=== PATIENT | female | born 1945 | race Caucasian/White ===

== ENCOUNTER 2016-09-24 17:48 | Emergency (ER) | payer MEDICARE, OTHER ==
[2016-09-24] MEDS ORDERED: KETOROLAC 0.45% OPHTH 1 DROP/EACH DROPERETTE ONE (18:51)
[2016-09-24] MEDS ORDERED: TOBRAMYCIN 0.3% OPHTH 25 DROP/5 ML BTL ONE (18:51)
--- NOTE | 2016-09-24 18:56 | ER NURSING DOCUMENTATION ---
Nurse's Notes [facility] Name:Teresita Bolden Age:70 yrs Sex:Female :1945 Arrival Date:09/24/2016 Time:17:48 Bed1 Private MD: Diagnosis:Stye Presentation: 09/24 17:53 Presenting complaint: Patient states: has been having redness and swelling of her right sc1 eye. Saw Dr. Galloway yesterday and put on antibiotics yesterday. She thinks it's worse today. Transition of care: Home. 17:53 Acuity: MAMIE 4 co1 17:53 Method Of Arrival: Private Vehicle co1 18:04 Notified ED Physician of Dr. Jc notified. co1 Triage Assessment: 18:11 General: Appears in no apparent distress, well developed, well nourished, well groomed, co1 Behavior is cooperative, pleasant. Pain: Complains of pain in right eye. Historical: - Allergies: Clindamycin; - Home Meds: 1. chlorzoxazone oral 2. Ibuprofen Oral - PMHx: Acute Low Back Pain (March 15, 2014); - Tetanus: < 10 years. - Ebola Screening: : Patient negative for fever greater than or equal to 101.5 degrees Fahrenheit, and additional compatible Ebola Virus Disease symptoms. Patient denies exposure to infectious person. Patient denies travel to an Ebola-affected area in the 21 days before illness onset. No symptoms or risks identified at this time. . - Immunization history: Flu Vaccine < 1 year. - Social history: Smoking status: Patient states was never smoker of tobacco. Patient/guardian denies using alcohol, street drugs, IV drugs, marijuana. Vital Signs: 18:11 BP 152 / 73; Pulse 74; Resp 18; Temp 98.3; Pulse Ox 90% on R/A; co1 ED Course: 17:51 Patient arrived in ED. 17:53 Ankita Grullon, RN is Primary Nurse. [facility] [place]:04 Triage completed. co1 18:13 Notified ED Physician of patient's arrival and chief complaint. Dr. Jc notified. Arm sc1 band placed on Bed in low position Call Light in Reach HOB Elevated. 18:19 Vasquez Jc MD is Attending Physician. co 18:38 Danny Galloway MD is Referral Physician. sc Administered Medications: 18:55 Drug: ketorolac (PF) Dropperette 0.45 % 1 drops; Route: Ophthalmic; Site: right eye; [facility] [place] Drug: Tobramycin Drops (0.3 %) 1 drops; Route: Ophthalmic; Site: right [place]; [facility] [place] Outcome: 18:39 Discharge ordered by . co 18:56 Patient left the ED. [facility] [place]/25 09:22 Discharge F/U Call: Spoke with: patient. Are you having any pain? no. Have you filled lp your prescriptions? yes. Signatures: Ankita Grullon RN RN [facility] [place] Rosalia Mtz RN RN Vasquez Jc MD MD co Juanis Ramírez
--- NOTE | 2016-09-24 18:56 | ER PHYSICIAN DOCUMENTATION ---
Physician Documentation [facility] Name:Teresita Bolden Age:70 yrs Sex:Female :1945 Arrival Date:09/24/2016 Time:17:48 Bed1 Private MD: Vasquez Gannon Disposition: 09/24/16 18:39 Discharged to Home/Self Care. Impression: Stye. - Condition is Good. - Discharge Instructions: STY. - Medical Reconciliation form form. - Follow up: Danny Galloway MD; When: As needed; Reason: Worsening of condition. - Problem is new. - Symptoms are unchanged. HPI: 09/24 18:36 This 70 yrs old Female presents to ER via Private Vehicle with complaints of sc Eye Problem. 18:36 The patient is experiencing redness, to the right eye. Onset: The symptom(s)/episode sc began/occurred yesterday. Duration: the symptoms are continuous. Associated signs and symptoms: Pertinent negatives: dizziness, fever, headache. Patient wears glasses. Severity of symptoms: At their worst the symptoms were mild. Historical: - Allergies: Clindamycin; - Home Meds: 1. chlorzoxazone oral 2. Ibuprofen Oral - PMHx: Acute Low Back Pain (March 15, 2014); - Tetanus: < 10 years. - Ebola Screening: : Patient negative for fever greater than or equal to 101.5 degrees Fahrenheit, and additional compatible Ebola Virus Disease symptoms. Patient denies exposure to infectious person. Patient denies travel to an Ebola-affected area in the 21 days before illness onset. No symptoms or risks identified at this time. . - Immunization history: Flu Vaccine < 1 year. - Social history: Smoking status: Patient states was never smoker of tobacco. Patient/guardian denies using alcohol, street drugs, IV drugs, marijuana. ROS: 18:37 Constitutional: Negative for fever, chills, and weight loss. sc Neck: Negative for injury, pain, and swelling. Cardiovascular: Negative for chest pain, palpitations, and edema. Skin: Negative for injury, rash, and discoloration. 18:37 Neuro: Negative for headache, weakness, numbness, tingling, and seizure. sc 18:37 Eyes: Positive for redness, swelling. Exam: 18:37 Visual Acuity: I have reviewed the nursing documentation. Visual acuity is within co normal limits. Constitutional: This is a well developed, well nourished patient who is awake, alert, and in no acute distress. 18:37 Head/Face: Normocephalic, atraumatic. 18:37 Eyes: Periorbital structures: erythema, Pupils: equal, round, and reactive to light and accomodation, Extraocular movements: intact throughout, Conjunctiva: no acute changes, Corneas: no acute changes, Sclera: no acute changes, Lids and lashes: stye, seen on the right lid. Vital Signs: 18:11 BP 152 / 73; Pulse 74; Resp 18; Temp 98.3; Pulse Ox 90% on R/A; co1 MDM: 18:19 Patient medically screened. co 18:38 Differential diagnosis: stye, no periorbital cellulitis. Data reviewed: vital signs, co nurses notes, old medical records, and as a result, I will discharge patient, administer antibiotics. Counseling: I had a detailed discussion with the patient and/or guardian regarding: the historical points, exam findings, and any diagnostic results supporting the discharge/admit diagnosis, the need for outpatient follow up, to return to the emergency department if symptoms worsen or persist or if there are any questions or concerns that arise at home. Dispensed Medications: 18:55 Drug: ketorolac (PF) Dropperette 0.45 % 1 drops; Route: Ophthalmic; Site: right eye; [facility] [place] 18:56 Drug: Tobramycin Drops (0.3 %) 1 drops; Route: Ophthalmic; Site: right eye; co1 Signatures: Ankita Grullon RN RN [facility] [place] Vasquez Jc MD MD co
== END 2016-09-24 18:56 | disposition home or self-care (01) ==
LOC: ER 17:48
DX: H00.013 Hordeolum externum right eye, unspecified eyelid (principal)
CPT/HCPCS: 99282